=== PATIENT | female | born 1965 | race Caucasian/White ===

== ENCOUNTER 2021-02-11 10:55 | Outpatient (CLI) | payer BC | END 2021-02-11 10:56 | disposition home or self-care (01) | LOC: CSHCP 10:55 | PROVIDERS: ATTEND Internal Medicine Pulmonary Disease | DX: J45.909 Unspecified asthma, uncomplicated (principal); R94.2 Abnormal results of pulmonary function studies | CPT/HCPCS: 94060; 94726; 94729; 94760 ==